=== PATIENT | female | born 1960 | race Caucasian/White ===

== ENCOUNTER 2017-04-20 10:08 | Inpatient (IN) | payer OTHER ==
[~2017-04-20] VITALS: Ht 167.6 cm; Wt 69.9 kg
[~2017-04-20 10:08] MED LIST: ONDA4TAB7 PO; PRAM0.255 PO
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
[2017-04-20] MEDS ORDERED: HYDROcodone/APAP 5/325MG 1 TAB TABLET PO ONE (11:45)
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
[2017-04-20] MEDS ORDERED: ONDANSETRON PF 4 MG/2 ML VIAL. IV PRN (13:30)
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
[2017-04-20 15:00] VITALS: BP 142/83
[2017-04-20] MEDS: MORPHINE SULFATE 2 MG/ML DISP.SYRIN. IV PRN ×3 (15:19→21:11)
[2017-04-20] MEDS ORDERED: IBUP-1007 PO (16:17)
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
[2017-04-20] MEDS ORDERED: oxyCODONE/APAP 5/325 1 TAB TABLET PO PRN (18:45)
[2017-04-20 19:00] VITALS: BP 105/56
[2017-04-20] MEDS ORDERED: IBUPROFEN 600 MG TABLET. PO PRN ×2 (19:00)
[2017-04-20] MEDS ORDERED: PRAMIPEXOLE 0.25 MG TABLET. PO SCH (21:00)
[2017-04-20 21:10] VITALS: BP 147/81
[2017-04-20 23:00] VITALS: BP 153/75
[2017-04-21 03:00] VITALS: BP 148/80
[2017-04-21] MEDS: MORPHINE SULFATE 2 MG/ML DISP.SYRIN. IV PRN (03:29)
[2017-04-21 07:00] VITALS: BP 108/73
[2017-04-21] MEDS ORDERED: METHOCARBAMOL 750 MG TABLET PO PRN (08:15)
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
[2017-04-21] MEDS ORDERED: ONDANSETRON PF 4 MG/2 ML VIAL. IV PRN (09:15)
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
[2017-04-21] MEDS ORDERED: methylPREDNISolone 4 MG TABLET. PO SCH ×2 (10:00→12:30)
[2017-04-21] MEDS ORDERED: tiZANidine 4 MG TABLET. PO SCH (10:00)
[2017-04-21] MEDS ORDERED: PANTOPRAZOLE 40 MG TABLET.DR. PO SCH (10:00)
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
[2017-04-21 10:23] LABS: BASO % 0 % (0-3); EOS % 1 % (0-3); HEMATOCRIT 41.2 % (36.0-47.0); LYMPH # 1.3 x10^3/uL (1.0-4.8); LYMPH % 12 % (24-48); MEAN CORPUSCULAR HEMOGLOBIN 31 pg (25-35); MEAN CORPUSCULAR HGB CONC 34 g/dL (31-37); MEAN CORPUSCULAR VOLUME 90 fL (79-100); MONO % 8 % (0-9); NEUT % 78 % (31-73); PLATELET COUNT 227 x10^3/uL (140-400); RED BLOOD COUNT 4.57 x10^6/uL (3.50-5.40); RED CELL DISTRIBUTION WIDTH 12.1 % (11.5-14.5); WHITE BLOOD COUNT 10.4 x10^3/uL (4.0-11.0)
[2017-04-21] MEDS ORDERED: IOHEXOL 300 MG/ML 100ML VIAL. IV ONE (10:45)
[2017-04-21] MEDS ORDERED: CONTRAST GIVEN MC PRN (10:45)
[2017-04-21] MEDS ORDERED: IOHEXOL 240 MG/ML 50ML VIAL. PO ONE (10:45)
[2017-04-21 11:00] VITALS: BP 106/65
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
[2017-04-21 15:00] VITALS: BP 98/50
[2017-04-22] MEDS ORDERED: methylPREDNISolone 4 MG TABLET. PO SCH ×2 (08:30→21:00)
[2017-04-23] MEDS ORDERED: methylPREDNISolone 4 MG TABLET. PO SCH (09:00)
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
[2017-04-24] MEDS ORDERED: methylPREDNISolone 4 MG TABLET. PO SCH (09:00)
[2017-04-25] MEDS ORDERED: methylPREDNISolone 4 MG TABLET. PO SCH (09:00)
[2017-04-26] MEDS ORDERED: methylPREDNISolone 4 MG TABLET. PO SCH (09:00)
== END 2017-04-21 16:34 | disposition home or self-care (01) | DRG 552 ==
LOC: ER 10:08 → 6 SOUTH 13:16
PROVIDERS: ADMIT Family Medicine; ATTEND Family Medicine
DX: M47.897 Other spondylosis, lumbosacral region (principal); K76.89 Other specified diseases of liver; F32.9 Major depressive disorder, single episode, unspecified; S23.3XXA Sprain of ligaments of thoracic spine, initial encounter; S13.4XXA Sprain of ligaments of cervical spine, initial encounter; F41.9 Anxiety disorder, unspecified; G25.81 Restless legs syndrome; M43.16 Spondylolisthesis, lumbar region; M43.17 Spondylolisthesis, lumbosacral region; M50.30 Other cervical disc degeneration, unspecified cervical region; M51.36 Other intervertebral disc degeneration, lumbar region; V89.2XXA Person injured in unspecified motor-vehicle accident, traffic, initial encounter; Y93.89 Activity, other specified; Y92.488 Other paved roadways as the place of occurrence of the external cause; Y99.8 Other external cause status; Z82.0 Family history of epilepsy and other diseases of the nervous system; Z82.49 Family history of ischemic heart disease and other diseases of the circulatory system; Z98.51 Tubal ligation status; Z83.3 Family history of diabetes mellitus; Z79.899 Other long term (current) drug therapy
CPT/HCPCS: 36415; 70450; 71010; 72125; 72128; 72131; 72141; 72148; 72170; 74177; 82962; 83880; 85025; J2270; J7509; Q9966; Q9967; 99285-25

== ENCOUNTER → 2020-09-25 | Outpatient (CLI) | payer OTHER ==
[~2020-09-25] MED LIST changes: +IBUP-1007 PO
--- NOTE | 2020-09-26 09:28 | SLEEP ---
DATE OF STUDY: 09/25/2020 HOME SLEEP STUDY The patient is a 60-year-old who weighs 168 pounds with a BMI of 27.1. The patient's [place] score was 15. The patient underwent home sleep study performed by [facility]. Total recording time was 504 minutes. During the night study, the patient had 37 obstructive apneas, 153 mixed apneas, 1 central apnea, and 109 hypopneas. The patient's AHI was 35.7 per hour. Nocturnal oximetry study revealed an average oxygen saturation 93% with a lowest of 82%. A 25 minutes were spent with oxygen saturation less than 90%. Mean heart rate 75 beats per minute with a maximum of 101 beats per minute. IMPRESSION: 1. Severe obstructive sleep apnea at an AHI of 35.7 per hour. 2. Nocturnal hypoxia secondary to obstructive sleep apnea. RECOMMENDATIONS: 1. Patient will benefit from treatment of sleep apnea with CPAP. This can be done an in-lab CPAP titration versus home AutoPap. 2. Once the patient is optimally treated with CPAP, then follow up in 4-6 weeks to assess compliance and to document clinical improvement. 3. Avoid STAFF PSYCHOLOGIST depressants. 4. Cautioned regarding driving until symptoms of sleep apnea resolve with above recommendations. DIMAS/LEON DR: Sanjana TID: [id number] CC: JEREMY WHITFIELD MD
== END ==
LOC: RT 07:47
PROVIDERS: ATTEND Family Medicine
DX: G47.33 Obstructive sleep apnea (adult) (pediatric) (principal); G47.34 Idiopathic sleep related nonobstructive alveolar hypoventilation
CPT/HCPCS: G0399

== ENCOUNTER → 2021-02-20 | Outpatient (CLI) | payer OTHER ==
--- NOTE | 2021-02-21 09:00 | SLEEP ---
DATE OF STUDY: 02/20/2021 POLYSOMNOGRAM REPORT OBJECTIVE: The patient is a 60-year-old female who underwent a home sleep study on 09/25/2020 and has returned for a CPAP titration study. Height 5 feet 5 inches, weight 170 pounds, body mass index 28, Benson sleep score 14. INTERPRETATION: Sleep architecture is characterized by a sleep efficiency of 80% across the 9.3 hours of recording time. Stage volumes are appropriate for age. Respiratory monitoring shows a total of 2 events as this was a CPAP titration study. The minimum oxygen saturation is 94%. Treatment is initiated. Prior to treatment, apnea-hypopnea index is 0. The patient had some upper airways resistance signs until she reached 9 cm of CPAP, which she tolerated well. There are 74 periodic limb movements per hour, of which were associated with arousal. There were no cardiac arrhythmias. IMPRESSION: Successful CPAP titration study. We actually suggest 7 cm using a ResMed AirFit N30i nasal cushion, small size. RECOMMENDATIONS: 1. The patient should be established on the setting. 2. She should pursue weight loss and avoid sedatives and alcohol. Thank you, for letting us help with the patient's care. ANDRÉS DR: Albino TID: [id number] CC: JEREMY WHITFIELD MD
== END ==
LOC: RT 18:50
PROVIDERS: ATTEND Family Medicine
DX: G47.33 Obstructive sleep apnea (adult) (pediatric) (principal)
CPT/HCPCS: 95811